=== PATIENT | male | born 1985 | race Caucasian/White ===

== ENCOUNTER 2021-05-21 06:49 | Emergency (ER) | payer OTHER ==
[~2021-05-21] VITALS: Ht 172.7 cm; Wt 90.9 kg
[2021-05-21] MEDS ORDERED: HYDROcodone/APAP 5/325MG 1 TAB TABLET PO ONE (08:15)
--- NOTE | 2021-05-21 08:34 | RAD ---
EXAM: 2 views left tibia/fibula DATE: 05/21/2021 8:05 AM INDICATION: Reason: pain s/p blunt trauma / Spl. Instructions: / History: . COMPARISON: No Prior FINDINGS: No evidence of acute fracture or dislocation. Marginal joint spaces are preserved without significant degenerative/proliferative change. Mild soft tissue swelling about the left lower leg. IMPRESSION: Mild soft tissue swelling about the left lower leg without acute fracture or dislocation. Electronically signed by: Romulo Bowman MD (05/21/2021 8:32 AM) [id number]
--- NOTE | 2021-05-21 08:40 | PHYS DOC ---
Past Medical History Past Surgical History: Other Additional Past Surgical Histo: ACHILLES TENDON SX Smoking Status: Former Smoker Alcohol Use: Heavy Additional Information: DRINKS WHISKY AND BEER ALMOST DAILY General Adult EDM: Chief Complaint: LOWEREXTREMITY INJURY HPI: HPI: Patient is a 35 year old [f__sex] who presents with [] Review of Systems: Review of Systems: Constitutional: Denies fever or chills Eyes: Denies redness or eye pain HENT: Denies nasal congestion or sore throat Respiratory: Denies cough or shortness of breath Cardiovascular: Denies chest pain or palpitations GI: Denies abdominal pain, nausea, or vomiting : Denies dysuria or hematuria Musculoskeletal: Denies back pain or joint pain Integument: Denies rash or skin lesions Neurologic: Denies headache, focal weakness or sensory changes Complete systems were reviewed and found to be within normal limits, except as documented in this note. Heart Score: C/O Chest Pain: N/A Current Medications: Current Medications Medications (Trade) Dose Ordered Sig/Maribel Start Time Stop Time Status Last Admin Dose Admin Acetaminophen/ Hydrocodone Bitart (Lortab 5/325) 1 tab 1X ONCE 05/21/21 08:15 05/21/21 08:16 DC 05/21/21 08:24 1 TAB Allergies: Allergies: Allergies Coded Allergies Type Severity Reaction Last Updated Verified No Known Drug Allergies 05/21/21 No Physical Exam: PE: Constitutional: Well developed, well nourished, no acute distress, non-toxic appearance HENT: Normocephalic, atraumatic Eyes: PERRL, EOMI, conjunctiva normal, no discharge Neck: Normal range of motion, no tenderness, supple Lungs & Thorax: No respiratory distress, equal chest rise and fall Abdomen: Soft, no tenderness Skin: Warm, dry, no erythema, no rash Back: No tenderness, no CVA tenderness Extremities: No tenderness, ROM intact, no edema Neurologic: Alert and oriented X 3, normal motor function, normal sensory function, no focal deficits noted Psychologic: Affect normal, judgment normal Current Patient Data: Vital Signs: Vital Signs Date Time Temp Pulse Resp B/P (MAP) Pulse Ox O2 Delivery O2 Flow Rate FiO2 05/21/21 08:25 107 18 150/89 (109) 97 Room Air 05/21/21 07:09 98.6 98.6 EKG: EKG: [] Radiology/Procedures: Radiology/Procedures: PROCEDURE: TIBIA FIBULA LEFT EXAM: 2 views left tibia/fibula DATE: 05/21/2021 8:05 AM INDICATION: Reason: pain s/p blunt trauma / Spl. Instructions: / History: . COMPARISON: No Prior FINDINGS: No evidence of acute fracture or dislocation. Marginal joint spaces are preserved without significant degenerative/proliferative change. Mild soft tissue swelling about the left lower leg. IMPRESSION: Mild soft tissue swelling about the left lower leg without acute fracture or dislocation. Electronically signed by: Romulo Bowman MD (05/21/2021 8:32 AM) [id number] Course & Med Decision Making: Course & Med Decision Making Pertinent Imaging studies reviewed. (See chart for details) Patient stable for discharge with outpatient follow-up with PCP. Discussed findings and plan with patient, who acknowledges understanding and agreement. Dragon Disclaimer: Dragon Disclaimer: This electronic medical record was generated, in whole or in part, using a voice recognition dictation system. Departure Departure Impression: Primary Impression: Contusion of left calf Qualified Codes: S80.12XA - Contusion of left lower leg, initial encounter Additional Impression: Hx of Achilles tendon repair Disposition: HOME / SELF CARE / HOMELESS Condition: STABLE Patient Instructions: Contusion, [id number], Crutch Use, [id number], RICE - Routine Care for Injuries, [id number] Additional Instructions: ICE area of discomfort 20 min on then leave off next 20 min. Repeat several times daily as needed for pain or discomfort. May also take the counter ibuprofen as needed for pain or discomfort. Look for signs of compartment syndrome and return for any concern. Scripts Hydrocodone Bit/Acetaminophen (HYDROCODONE-APAP 5-325 ) 1 Tab Tablet 0.5-1 TAB PO PRN Q6HRS PRN for PAIN, #20 TAB 0 Refills Prov: COMPA OLMOS DO 05/21/21 COMPA OLMOS DO May 21, 2021 08:40
[2021-05-21] MEDS ORDERED: HYDR-2761 PO (09:46)
[2021-05-21 09:51] VITALS: BP 135/92
== END 2021-05-21 10:08 | disposition home or self-care (01) ==
LOC: ER 06:49 → MERGE 06:49 → ER 10:08
DX: Z87.891 Personal history of nicotine dependence (principal); S80.12XA Contusion of left lower leg, initial encounter; F10.20 Alcohol dependence, uncomplicated; Y90.9 Presence of alcohol in blood, level not specified; W22.8XXA Striking against or struck by other objects, initial encounter; Y93.89 Activity, other specified; Y92.69 Other specified industrial and construction area as the place of occurrence of the external cause; Y99.0 Civilian activity done for income or pay
CPT/HCPCS: 29515; 73590; 99283